=== PATIENT | female | born 1970 | race Caucasian/White ===

== ENCOUNTER → 2022-04-10 15:02 | Outpatient (CLI) | payer OTHER, SELFPAY ==
[2022-04-10 16:19] LABS: COVID19 -Nasal RAPID Negative (Negative)
== END ==
PROVIDERS: Visit Provider Obstetrics & Gynecology
DX: Z20.822 Contact with and (suspected) exposure to COVID-19 (principal); Z01.812 Encounter for preprocedural laboratory examination
CPT/HCPCS: 87635

== ENCOUNTER 2022-04-11 08:00 | Day surgery (SDC) | payer OTHER, SELFPAY ==
[2022-04-11] VITALS (7 sets, daily range): BP systolic 119–136; BP diastolic 62–87; PULSE 64–86; RESP 14–22; TEMP 36.7–36.8; O2SAT 97–100; BMI 49.9
--- NOTE | 2022-04-11 | PATH_ITS ---
[facility] Accession Number: [id number] . 01 Material submitted: . endocervix - ENDOCERVIAL POLYP . 01 Diagnosis: Endocervical Polyp, Biopsy: Benign endocervical polyp. No dysplasia or malignancy. [facility] 04/14/2022 1016 Local . 01 Electronically signed: . Maribeth Perez MD, Pathologist NPI- [id number] . 01 Gross description: . Received in formalin in a specimen container, labeled with the patient's name and medical record number, endocervical polyp, is an irregular-shaped, multilobulated, wrinkled, pink soft tissue fragment that measures 3.2 x 2.2 x 1.3 cm. Also in the same container is a moderate amount of semitranslucent, pink mucus that measures in aggregate 2.5 x 1.5 x 1.0 cm. The possible resection margin is identified and is inked blue. The specimen is serially sectioned to reveal solid, pink, slightly gelatinous cut surfaces. Building Specialist sections are submitted as follows: . A1: [place] soft tissue fragment. A2: Mucus. ([id number]) /[facility] 04/12/2022 1323 Local . 01 Pathologist provided ICD-10: N84.1 . 01 CPT . 566934 Specimen Comment: A courtesy copy of this report has been sent to [phone] Performed at: 01 [facility] [address] [place] [address], [place], [place] [id number] MD Abundio Randolph MD Phone: [phone]
[2022-04-11] MEDS: LACTATED RINGERS 1,000 ML 42 ML IV (08:20)
--- NOTE | 2022-04-11 09:38 | PM.PREOP ---
Pre-operative Note COVID-19 COVID-19 status: Negative Result date/Date tested (Pos, Neg/Pending): 04/10/22 Criteria for continued procedure: Non-surgical alternatives not available or appropriate per current SOC Interval Note History & Physical reviewed/Exam performed by Physician: Yes Changes to H&P: No
[2022-04-11 09:56] LABS: Hematocrit 38.8 % (36-46); Hemoglobin 13.6 g/dL (12.0-16.0); Mean Corpuscular HGB Conc 35.1 % (30-36); Mean Corpuscular Hemoglobin 31.3 PG (26-34); Mean Corpuscular Volume 89.3 fL (80-100); Platelet Count 309 X10^3/uL (150-400); Red Blood Cell Count 4.35 X10^6/uL (4.0-5.2); Red Cell Distribution Width 13.1 % (11.6-14.8); White Blood Cell Count 4.3 X10^3/uL (4.5-11.0)
--- NOTE | 2022-04-11 10:33 | SUR.OPER ---
Lithotomy on padded OR bed, head on pillow, arms secured on padded arm boards at <90 degrees abduction. Legs secured in padded yellow fins stirrups.
--- NOTE | 2022-04-11 10:51 | PM.GYNOP.1 ---
Operative Date/Time/Diagnoses Date of procedure: 04/11/22 Time of procedure: 10:25 Pre-op diagnosis: Endocervical mass IUD in place Post-op diagnosis: same Procedure & Clinicians Procedure: Procedures Operation Date: 04/11/22 09:45 Exam under anesthesia; Endocervical polypectomy w/o ECC; Cervical dilation; Removal of IUD; Insertion of IUD (Mirena) Indications: Michell is a perimenopausal 51-year-old female who was originally seen by Dr. Jo Ann Gan in referral from her primary care provider with what was felt to be a cervical polyp.? Examination by Dr. Gan however demonstrated that she had a 5 cm mass protruding through the cervical os which was most likely a prolapsed fibroid originating either in the endocervix or the endometrial cavity.? After discussion of all options, the patient is proceeding with removal of the endocervical/endometrial mass with replacement of her Mirena IUD in the main OR of [facility] and she presents today for her scheduled surgery. Surgeon: Yaakov Escamilla Anesthesia Type: General Operative Notes Findings: 3-4 cm benign appearing endocervical polyp with a thin stalk arising from the left lateral aspect of the mid-endocervical canal. Once polyp removed, Mirena IUD strings visible. Acute anteflexion prohibitive to rigid hysteroscopic evaluation of the endometrial cavity. Closure Type: not applicable Specimen(s): other (Endocervical polyp) Estimated blood loss (mL): 10 Blood products transfused: none Procedure in detail: With the patient under satisfactory general anesthesia in the modified dorsal lithotomy position, the perineum vagina and lower abdomen were prepped and draped in the usual manner for vaginal surgery. A pre-surgical safety time-out was then taken in accordance with [facility] protocols. A weighted speculum was placed in the vagina and a Sutton retractor placed anteriorly. The anterior lip of the cervix was grasped with a single-tooth tenaculum and the endocervical canal visualized with the assistance of retractors. The base of the endocervical polyp was identified and a Alcira loop was placed around the base of the endocervical polyp. Using 30 w cutting power, the base of the endocervical polyp stalk was divided and the polyp easily removed. The endocervical canal was visualized and there was no bleeding or additional polyps in the endocervical canal. Once the polyp was removed, the Mirena IUD strings were visible and with gentle traction, the Mirena IUD in-situ was removed intact. Attempts to dilate the endocervical canal for hysteroscopy were extremely challenging due to acute anteflexion high in the endocervical canal and with only a rigid hysteroscope available for use, hysteroscopy was abandoned due to concerns for risk of perforation. Sonographic evaluation of the endometrium will be performed by ultrasound 4-6 weeks following her surgery. The uterus was sounded to 9 cm and with considerable difficulty once the tract to the endometrial cavity was firmly established, a new Mirena IUD was inserted in usual manner (Lot: [id number], Exp. ). The strings were trimmed to 3 cm in length and single-tooth tenaculum was removed from the cervix. There was no bleeding noted and the procedure was terminated by removal of the speculum from the vagina. The patient was then awakened and transferred to the PACU for a period of observation and recovery. Complications: none Post-operative Condition: stable Disposition: PACU Plan for aftercare: Routine post-operative care. Vibramycin 100 mg PO BID x 7 days for AB prophylaxis following IUD insertion. Follow-up will be in 2 weeks post-op.
[2022-04-11] MEDS: OXYCODONE/ACETAMINOPHEN 5/325 TABLET 1 TAB PO (11:20)
[2022-04-11] MEDS: ONDANSETRON 4 MG/2 ML INJ IV (11:21)
== END 2022-04-11 11:58 | disposition home or self-care (01) ==
PROVIDERS: Referring Provider Obstetrics & Gynecology; Visit Provider Obstetrics & Gynecology
PROC: 0UDB8ZZ Extraction of Endometrium, Via Natural or Artificial Opening Endoscopic (ICD-10-PCS; CPT 58558; principal; 2022-04-11 09:45)
DX: N88.8 Other specified noninflammatory disorders of cervix uteri (principal); Z30.433 Encounter for removal and reinsertion of intrauterine contraceptive device; N84.1 Polyp of cervix uteri; I10 Essential (primary) hypertension; E03.9 Hypothyroidism, unspecified; E11.9 Type 2 diabetes mellitus without complications; Z79.84 Long term (current) use of oral hypoglycemic drugs; E66.9 Obesity, unspecified; Z68.43 Body mass index [BMI] 50.0-59.9, adult
CPT/HCPCS: 57500; 58301; 58300; 85027; J1100; J1885; J2250; J2405; J2704; J3010; J7298